=== PATIENT | female | born 1995 | race Two or more races ===

== ENCOUNTER 2023-10-14 14:00 | Emergency (ER) | payer OTHER ==
[2023-10-14 14:15] VITALS: O2SAT 100
[2023-10-14 14:39] LABS: BASOPHILS # (AUTO) 0.1 10^3/uL (0.0-0.1); BASOPHILS % (AUTO) 1.8 %; EOSINOPHILS % (AUTO) 0.8 %; HCT - HEMATOCRIT 26.3 % (37.0-47.0); HGB - HEMOGLOBIN 7.1 g/dL (12.0-16.0); LYMPHOCYTES # (AUTO) 1.4 10^3/uL (1.5-3.5); LYMPHOCYTES % (AUTO) 28.1 %; MEAN CORPUSCULAR HEMOGLOBIN 19.8 pg (27.0-31.0); MEAN CORPUSCULAR VOLUME 73.3 fL (81.0-99.0); MONOCYTES # (AUTO) 0.4 10^3/uL (0.0-1.0); MONOCYTES % (AUTO) 7.2 %; NEUTROPHILS % (AUTO) 61.9 %; PLT - PLATELET COUNT 474 10^3/uL (130-450); RED BLOOD COUNT 3.59 10^6/uL (4.20-5.40); RED CELL DISTRIBUTION WIDTH 19.9 % (12.0-15.0); WHITE BLOOD COUNT 4.9 x10^3/uL (4.8-10.8)
[2023-10-14 14:50] LABS: ALBUMIN 4.4 g/dL (3.2-5.5); ALBUMIN/GLOBULIN RATIO 1.3 (1.0-2.2); BILIRUBIN,TOTAL 0.4 mg/dL (0.2-1.0); CALCIUM 9.6 mg/dL (8.5-10.3); CREATININE 0.7 mg/dL (0.6-1.3); POTASSIUM 3.5 mmol/L (3.5-4.5); TOTAL PROTEIN 7.8 g/dL (6.4-8.9)
--- NOTE | 2023-10-14 15:21 | ED Physician Documentation ---
PD HPI ABD PAIN - Stated complaint Stated Complaint: ABD PX,NAUSEA,BRYANT - Chief complaint Chief Complaint: Abd Pain - History obtained from History obtained from: Patient - History of Present Illness Timing - onset: How many days ago (2 days ago intermittent with more consistent since last evening. Pain epigastric area with nausea but no vomiting. Pain localized.) Timing - duration: Hours Timing - details: Gradual onset, Still present, Waxing and waning Quality: Aching, Pain Location: Epigastric Radiation: No: Chest, Lower back, Left flank, Right flank Improved by: No: Eating, Vomiting Worsened by: Eating Associated symptoms: Nausea, Melena (she states mild dark stools at times recently. No noted red/blood appearance.). No: Fever, Vomiting, Diarrhea, Constipation Review of Systems Constitutional: reports: Fatigue (for 1-2 months). denies: Fever, Chills, Weight Loss Nose: denies: Rhinorrhea / runny nose, Congestion Throat: denies: Sore throat Cardiac: denies: Chest pain / pressure, Palpitations Respiratory: denies: Dyspnea, Cough GI: reports: Abdominal Pain, Nausea. denies: Vomiting, Diarrhea Neurologic: reports: Generalized weakness. 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 : None HEENT: None Psych: Post traumatic stress disorder Musculoskeletal: None Derm: None - Past Surgical History Past Surgical History: Yes General: Cholecystectomy /FLARE STITCHER: section Derm: Other - Present Medications Home Medications: Ambulatory Orders Medication Instructions Recorded Confirmed Acetaminophen [Acetaminophen Extra 500 mg PO QID PRN #50 tablet 10/14/23 Strength] Ferrous Sulfate 300 mg PO DAILY 30 Days #150 ml 10/14/23 Lidocaine Viscous 2% [Xylocaine 5 ml PO Q4H PRN #100 ml 10/14/23 Viscous 2%] Ondansetron Odt [Zofran] 4 mg TL Q6H PRN #15 tablet 10/14/23 Pantoprazole [Protonix] 40 mg PO DAILY 30 Days #30 tablet 10/14/23 Sucralfate [Carafate] 1 gm PO ACHS 10 Days #400 ml 10/14/23 - Allergies Allergies/Adverse Reactions: Allergies Allergy/AdvReac Type Severity Reaction Status Date / Time No Known Drug Allergies Allergy Verified 10/14/23 16:35 - Social History Does the pt smoke?: No Smoking Status: Never smoker Does the pt drink ETOH?: Yes ETOH Use: Wine Does the pt have substance abuse?: No - Immunizations Immunizations are current?: Yes PD ED PE NORMAL - Vitals Vital signs reviewed: Yes - General General: Alert and oriented X 3, No acute distress, Well developed/nourished - Neck Neck: Supple, no meningeal sign, No adenopathy - Cardiac Cardiac: RRR, No murmur - Respiratory Respiratory: No respiratory distress, Clear bilaterally - Abdomen Abdomen: Normal bowel sounds, Soft, Non distended, No organomegaly, Other (tender epigastric without guarding nor percussion nor rebound tenderness. ) - Derm Derm: Normal color, Warm and dry - Extremities Extremities: Normal ROM s pain, No edema, No calf tenderness / cord - Neuro Neuro: Alert and oriented X 3, No motor deficit, Normal speech Results - Vitals Vitals: Vital Signs - 24 hr 10/14/23 10/14/23 14:07 16:13 Temperature 36.8 C Heart Rate 62 78 Respiratory 16 16 Rate Blood Pressure 129/78 120/78 O2 Saturation 100 100 Oxygen O2 Source Room air - Labs Labs: Laboratory Tests 10/14/23 10/14/23 10/14/23 14:17 14:32 14:32 WBC 4.9 RBC 3.59 L Hgb 7.1 L Hct 26.3 L MCV 73.3 L MCH 19.8 L MCHC 27.0 L RDW 19.9 H Plt Count 474 H MPV 11.0 H Neut # (Auto) 3.0 Lymph # (Auto) 1.4 L [place] # (Auto) 0.4 Eos # (Auto) 0.0 Baso # (Auto) 0.1 Absolute Nucleated RBC 0.00 Nucleated RBC % 0.0 Sodium 137 Potassium 3.5 Chloride 103 Carbon Dioxide 27 Anion Gap 7.0 BUN 10 Creatinine 0.7 Estimated GFR (MDRD) 99 Glucose 90 Calcium 9.6 Iron TIBC % Saturation Transferrin Total Bilirubin 0.4 AST 26 ALT 16 Alkaline Phosphatase 53 Total Protein 7.8 Albumin 4.4 Globulin 3.4 Albumin/Globulin Ratio 1.3 Lipase 25 TSH Urine Color YELLOW Urine Clarity CLEAR Urine pH 6.5 Ur Specific [place] 1.015 Urine Protein NEGATIVE Urine Glucose (UA) NEGATIVE Urine Ketones TRACE Urine Occult Blood NEGATIVE Urine Nitrite NEGATIVE Urine Bilirubin NEGATIVE Urine Urobilinogen 0.2 (NORMAL) Ur Leukocyte Esterase NEGATIVE Ur Microscopic Review NOT INDICATED Urine Culture Comments NOT INDICATED Urine HCG, Qual NEGATIVE 10/14/23 14:32 WBC RBC Hgb Hct MCV MCH MCHC RDW Plt Count MPV Neut # (Auto) Lymph # (Auto) [place] # (Auto) Eos # (Auto) Baso # (Auto) Absolute Nucleated RBC Nucleated RBC % Sodium Potassium Chloride Carbon Dioxide Anion Gap BUN Creatinine Estimated GFR (MDRD) Glucose Calcium Iron 10 L TIBC 538 H % Saturation 2 L Transferrin 384 H Total Bilirubin AST ALT Alkaline Phosphatase Total Protein Albumin Globulin Albumin/Globulin Ratio Lipase TSH 1.56 Urine Color Urine Clarity Urine pH Ur Specific [place] Urine Protein Urine Glucose (UA) Urine Ketones Urine Occult Blood Urine Nitrite Urine Bilirubin Urine Urobilinogen Ur Leukocyte Esterase Ur Microscopic Review Urine Culture Comments Urine HCG, Qual PD Medical Decision Making - ED course Complexity details: reviewed results (low Hgb with history of described melena at times. COncern for marginal ulcer. Vitlas are good. Presume urgent referral and scope to eval but is stable for discharge and not clinically seeming emergent scoping, duong in lieu of likely iron def anemia suggesting longer duration. ), considered differential, d/w patient, d/w absence management consultant (I With Dr. Hdez who is on for surgery. Given the patient's presentation and nonperitoneal findings on exam, did not feel strongly compelled to need imaging such as CT or ultrasound. This would coincide with the patient's desire for not imaging as well. To treat as likely marginal ulcer.) ED course: The patient with upper abdominal pain. She does describe at times some dark stool. Not bloody. Abdominal pain just in the short-term. Nonperitoneal on exam. Does not feel obstructed or distended. Not tender in the right upper quadrant and her LFTs, alk phos, lipase are normal. The patient prefers no IV nor imaging and I actually do not feel there is a high yield for this at the moment. Consider likely a marginal ulcer. I did talk with the surgeon on-call who states if we were to feel it needing emergent, we could 6 go per her as an inpatient. However could also treat as a likely marginal ulcer with Protonix and Carafate and Tylenol with viscous lidocaine and Mylanta as needed. [place] and to start also on iron supplement and antiemetic. I sent prescriptions to her preferred pharmacy. The patient would prefer the option of outpatient treating as a possible marginal ulcer and following up. Surgery on-call did state preference would be for the patient to get a follow-up to a bariatric specialist. The patient should have her primary care put in a urgent referral for that for presumed endoscopy. Patient is to return if worsening pain and again for repeat blood count. She is on the cusp of low but given her age and apparent either none production with iron deficiency or possible slow GI loss, it is seems we can defer transfusions or so based on the current blood test level. Departure - Departure Disposition: 01 Home, Self Care Clinical Impression: Acute upper abdominal pain, Status post gastric bypass for obesity, Anemia, Marginal ulcer Condition: Stable Record reviewed to determine appropriate education?: Yes Instructions: ED PUD Follow-Up: EDWARD Godwin [Provider Group] Prescriptions: Acetaminophen [Acetaminophen Extra Strength] 500 mg PO QID PRN #50 tablet PRN Reason: Pain Sucralfate [Carafate] 1 gm PO ACHS 10 Days #400 ml Ferrous Sulfate 300 mg PO DAILY 30 Days #150 ml Pantoprazole [Protonix] 40 mg PO DAILY 30 Days #30 tablet Lidocaine Viscous 2% [Xylocaine Viscous 2%] 5 ml PO Q4H PRN #100 ml PRN Reason: Pain Ondansetron Odt [Zofran] 4 mg TL Q6H PRN #15 tablet PRN Reason: Nausea / Vomiting Comments: You are anemic with a hemoglobin of 7.1. It does look likely to be iron deficiency though concern would be with your intermittent dark stools that there is some bleeding from an ulcer contributing. Your blood test for liver and pancreas and basic electrolytes are good. It would be good to have an evaluation by bariatric specialist with consideration of a scope to evaluate. At this point we can treat as a ulcer at the margin of the bypass area with Protonix and Carafate as well as medications for nausea and Tylenol for pain. Add ondansetron if needed for nausea. In addition you can use antacids such as Maalox or Mylanta along with the lidocaine to help with some of the pain. We would add a iron supplement as well to help with production of your blood. However we do want to make sure you are not getting lower still. Follow-up with your primary care clinic for recheck in in the next 2 to 3 days to have your blood count rechecked and to evaluate your symptoms. Hopefully they would put in for a urgent referral for bariatric surgery. Meanwhile if you are having increasing pain or symptoms you can return to the ER. If there is a reasonable delay in getting to a bariatric specialist per se, you could try following up with our surgery office here for just more of a diagnostic scope to see if there is any ulcerations occurring. I sent your prescriptions to the [facility] pharmacy. [place] then you can certainly return to the ER particular symptoms are worse. [facility] In clinic may be an option as well. Forms: PCP List Discharge Date/Time: 10/14/23 16:50
[2023-10-14 15:38] LABS: BILIRUBIN,URINE NEGATIVE (NEGATIVE); GLUCOSE, URINE (UA) NEGATIVE (NEGATIVE); KETONES,URINE (UA) TRACE mg/dL (NEGATIVE); LEUKOCYTE ESTERASE, URINE NEGATIVE (NEGATIVE); NITRITE,URINE NEGATIVE (NEGATIVE); OCCULT BLOOD,URINE NEGATIVE (NEGATIVE); PH,URINE 6.5 PH (5.0-7.5); PROTEIN,URINE NEGATIVE (NEGATIVE); UROBILINOGEN,URINE 0.2 (NORMAL) E.U./dL (NORMAL)
[2023-10-14 15:39] LABS: CLARITY,URINE CLEAR (CLEAR)
[2023-10-14 15:52] LABS: HCG UR QUAL NEGATIVE
[2023-10-14] MEDS: LIDOCAINE VISCOUS 2% 15 ML UDC MM STA (16:01)
[2023-10-14] MEDS: ONDANSETRON ODT 4 MG TABLET TL STA (16:01)
[2023-10-14] MEDS: MAG HYDROX/AL HYDROX/SIMETH 30 ML UDC PO STA (16:01)
[2023-10-14 16:31] LABS: THYROID STIMULATING HORMONE 1.56 uIU/mL (0.34-5.60)
[2023-10-14] MEDS: SUCRALFATE 1 GM/10 ML UDC PO STA (16:32)
[2023-10-14] MEDS: PANTOPRAZOLE 40 MG TABLET PO STA (16:32)
[2023-10-14 16:48] VITALS: BP 120/78
== END 2023-10-14 16:50 | disposition home or self-care (01) ==
LOC: ED 14:00
DX: R10.10 Upper abdominal pain, unspecified (principal); Z98.84 Bariatric surgery status; D64.9 Anemia, unspecified
CPT/HCPCS: 36415; 80053; 81003; 81025; 83540; 83690; 84443; 84466; 85025; 99283; 99284; A9270; Q0162; 81001; 87086

== ENCOUNTER 2023-10-28 20:56 | Outpatient (CLI) | payer OTHER ==
--- NOTE | 2023-10-29 09:12 | Ultrasound Report ---
PROCEDURE: Abdomen Limited INDICATIONS: UPPER ABD PAIN TECHNIQUE: Real-time focused scanning was performed of the abdomen, with image documentation. COMPARISONS: None. FINDINGS: Liver: Liver is normal in size and and mildly increased in echogenicity. Gallbladder: No gallstones, sludge, wall thickening or pericholecystic edema. Biliary ducts: Intrahepatic bile ducts are non-dilated. Extrahepatic bile duct caliber measures 4 m m. Normal is 6-7 mm or less in diameter, or 10 mm or less post-cholecystectomy. Pancreas: Visualized portions of the pancreas are sonographically normal. Pancreatic tail is not wel l seen. Right kidney: Normal in size and echotexture. Right kidney measures 10.8 cm long. No hydronephrosis or nephrolithiasis. No solid masses. No complex renal cystic lesions which require follow-up. IVC: Intrahepatic inferior vena cava is patent. Miscellaneous: No free abdominal fluid. IMPRESSION: Liver is mildly increased in echogenicity, most consistent with mild hepatic steatosis. Reviewed by: Warner Pruitt MD on 10/29/2023 9:10 AM PDT Approved by: Warner Pruitt MD on 10/29/2023 9:10 AM PDT Station ID: [id number]
== END 2023-10-28 20:57 | disposition home or self-care (01) ==
LOC: DI 20:56
PROVIDERS: ATTEND Nurse Practitioner Family
DX: R10.10 Upper abdominal pain, unspecified (principal); R93.2 Abnormal findings on diagnostic imaging of liver and biliary tract

== ENCOUNTER 2023-10-31 00:03 | Emergency (ER) | payer OTHER ==
[2023-10-31 00:22] VITALS: BP 122/78; O2SAT 100
[2023-10-31] MEDS: FAMOTIDINE 20 MG TABLET PO STA (00:37)
[2023-10-31] MEDS: LIDOCAINE VISCOUS 2% 15 ML UDC MM STA (00:38)
[2023-10-31] MEDS: MAG HYDROX/AL HYDROX/SIMETH 30 ML UDC PO STA (00:38)
[2023-10-31] MEDS: diphenhydrAMINE ELIXIR 25 MG/10 ML UDC PO STA (00:38)
--- NOTE | 2023-10-31 00:45 | ED Physician Documentation ---
History of Present Illness - Stated complaint Stated Complaint: ABD PX - Chief complaint Chief Complaint: Abd Pain - History obtained from History obtained from: Patient - Additonal information Additional information: 28yF with pmh gastric bypass, cholecystectomy, gerd, p/w burning, stabbing sensation in upper midabdomen radiating up to the chest starting tonight around 2100 refractory to home remedies. similar pain to previous ED visit at which she was given viscous lidocaine with improvement. denies vomting, diarrhea, fever. does have nausea. patient has appointment for endoscopy/colonoscopy 11/02. 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 : None HEENT: None Psych: Post traumatic stress disorder Musculoskeletal: None Derm: None - Past Surgical History Past Surgical History: Yes General: Cholecystectomy /SUPERVISOR CARTOGRAPHY: section Derm: Other - Present Medications Home Medications: Ambulatory Orders Medication Instructions Recorded Confirmed Acetaminophen [Acetaminophen Extra 500 mg PO QID PRN #50 tablet 10/14/23 10/31/23 Strength] Ferrous Sulfate 300 mg PO DAILY 30 Days #150 ml 10/14/23 10/31/23 Lidocaine Viscous 2% [Xylocaine 5 ml PO Q4H PRN #100 ml 10/14/23 10/31/23 Viscous 2%] Ondansetron Odt [Zofran] 4 mg TL Q6H PRN #15 tablet 10/14/23 10/31/23 Pantoprazole [Protonix] 40 mg PO DAILY 30 Days #30 tablet 10/14/23 10/31/23 Sucralfate [Carafate] 1 gm PO ACHS 10 Days #400 ml 10/14/23 10/31/23 - Allergies Allergies/Adverse Reactions: Allergies Allergy/AdvReac Type Severity Reaction Status Date / Time No Known Drug Allergies Allergy Verified 10/31/23 00:13 - Social History Does the pt smoke?: No Smoking Status: Never smoker Does the pt drink ETOH?: Yes Does the pt have substance abuse?: No - Immunizations Immunizations are current?: Yes - POLST Patient has POLST: No PD ED PE NORMAL - Vitals Vital signs reviewed: Yes - General General: Alert and oriented X 3, Well developed/nourished, Other (uncomfortable appearing) - HEENT HEENT: Atraumatic, PERRL, EOMI, Moist mucous membranes, Pharynx benign - Neck Neck: Supple, no meningeal sign - Cardiac Cardiac: RRR - Respiratory Respiratory: No respiratory distress, Clear bilaterally - Abdomen Abdomen: Non tender, Non distended, No organomegaly, Other (discomfort to midepigastric palpation) - Derm Derm: Normal color, Warm and dry - Neuro Neuro: Alert and oriented X 3 Results - Vitals Vitals: Vital Signs - 24 hr 10/31/23 00:07 Temperature 36.6 C Heart Rate 77 Respiratory 20 Rate Blood Pressure 122/78 O2 Saturation 100 Oxygen O2 Source Room air - Labs Labs: Laboratory Tests 10/31/23 10/31/23 00:50 00:50 WBC 6.5 RBC 4.07 L Hgb 8.0 L Hct 29.5 L MCV 72.5 L MCH 19.7 L MCHC 27.1 L RDW 21.2 H Plt Count 185 MPV 10.4 Neut # (Auto) 3.6 Lymph # (Auto) 2.1 [place] # (Auto) 0.6 Eos # (Auto) 0.1 Baso # (Auto) 0.1 Absolute Nucleated RBC 0.00 Nucleated RBC % 0.0 Sodium 138 Potassium 3.5 Chloride 106 Carbon Dioxide 24 Anion Gap 8.0 BUN 12 Creatinine 0.8 Estimated GFR (MDRD) 85 L Glucose 107 H Calcium 9.1 Total Bilirubin 0.3 AST 20 ALT 13 Alkaline Phosphatase 49 Total Protein 7.3 Albumin 4.4 Globulin 2.9 Albumin/Globulin Ratio 1.5 Lipase 27 PD Medical Decision Making - ED course ED course: 28yF with psh cholecystectomy and gastric bypass p/w midepigastric pain tonight likely 2/2 gerd vs less likely possibility of complication of gastric bypass versus choledocholithiasis from gallbladder stump. Pain improved s/p GI cocktail and IV dilaudid. Nausea resolved with zofran. Reexamination of abdomen is completely nontender. Labs stable from previous. Plan to f/u outpatient GI. Strict return precautions given. Departure - Departure Disposition: 01 Home, Self Care Clinical Impression: Anemia, Abdominal pain Condition: Stable Instructions: Abdominal Pain Comments: You were seen in the emergency department for abdominal pain. Glad you are feeling better! Your labwork was normal except for anemia, which looks like it's improved a bit since your last visit. (Hb 8.) Please follow-up with your primary care provider and return to the emergency department if you have any new or worsening symptoms or other concerns. Forms: PCP List
[2023-10-31 00:56] LABS: BASOPHILS # (AUTO) 0.1 10^3/uL (0.0-0.1); BASOPHILS % (AUTO) 1.5 %; EOSINOPHILS # (AUTO) 0.1 10^3/uL (0.0-0.7); EOSINOPHILS % (AUTO) 1.5 %; HCT - HEMATOCRIT 29.5 % (37.0-47.0); LYMPHOCYTES # (AUTO) 2.1 10^3/uL (1.5-3.5); LYMPHOCYTES % (AUTO) 32.5 %; MEAN CORPUSCULAR HEMOGLOBIN 19.7 pg (27.0-31.0); MEAN CORPUSCULAR HGB CONC 27.1 g/dL (32.0-36.0); MEAN CORPUSCULAR VOLUME 72.5 fL (81.0-99.0); MEAN PLATELET VOLUME 10.4 fL (7.9-10.8); MONOCYTES # (AUTO) 0.6 10^3/uL (0.0-1.0); NEUTROPHILS # (AUTO) 3.6 10^3/uL (1.5-6.6); NEUTROPHILS % (AUTO) 55.3 %; PLT - PLATELET COUNT 185 10^3/uL (130-450); RED BLOOD COUNT 4.07 10^6/uL (4.20-5.40); RED CELL DISTRIBUTION WIDTH 21.2 % (12.0-15.0); WHITE BLOOD COUNT 6.5 x10^3/uL (4.8-10.8)
[2023-10-31] MEDS: ONDANSETRON 4 MG/2 ML VIAL IVP STA (00:58)
[2023-10-31] MEDS: HYDROmorphone 1 MG/ML CARPUJECT IVP STA (00:58)
[2023-10-31 01:15] LABS: ALBUMIN 4.4 g/dL (3.2-5.5); ALBUMIN/GLOBULIN RATIO 1.5 (1.0-2.2); BILIRUBIN,TOTAL 0.3 mg/dL (0.2-1.0); CALCIUM 9.1 mg/dL (8.5-10.3); CREATININE 0.8 mg/dL (0.6-1.3); POTASSIUM 3.5 mmol/L (3.5-4.5); TOTAL PROTEIN 7.3 g/dL (6.4-8.9)
== END 2023-10-31 01:39 | disposition home or self-care (01) ==
LOC: ED 00:03
DX: R10.13 Epigastric pain (principal); D64.9 Anemia, unspecified; Z98.84 Bariatric surgery status; Z90.49 Acquired absence of other specified parts of digestive tract
CPT/HCPCS: 36415; 80053; 83690; 85025; 96374; 99283; 99284; A9270; J1170